=== PATIENT | male | born 1995 | race Asian ===

== ENCOUNTER 2017-03-05 18:03 | Emergency (ER) | payer OTHER ==
[2017-03-05 18:17] VITALS: TEMP 36.8
--- NOTE | 2017-03-05 18:23 | DIAGNOSTIC IMAGING REPORT ---
CHEST ONE VIEW PORTABLE CLINICAL HISTORY: 21 years-old Male presenting with eval for pna. TECHNIQUE: Portable upright AP view of the chest was obtained. COMPARISON: None. FINDINGS: Cardiomediastinal silhouette normal. Lungs and pleural spaces clear. Osseous structures normal. Upper abdomen normal. IMPRESSION: 1. No acute cardiopulmonary disease. Electronically signed by: Jeferson Chandra M.D. 03/05/2017 6:22 PM Dictated Date/Time: 03/05/2017 6:21 PM
[2017-03-05 18:58] LABS: BASO % 0.2 %; BASO ABS # 0.02 K/uL (0-0.2); EOS % 0.5 %; EOS ABS # 0.05 K/uL (0-0.5); HEMATOCRIT 45.2 % (42-52); IG# 0.03 K/uL (0.00-0.02); LYMPH % 18.9 %; LYMPH ABS # 1.96 K/uL (1.2-3.4); MEAN CELL VOLUME 87.4 fL (80-100); MEAN CORPUSCULAR HEMOGLOBIN 30.9 pg (25-34); MEAN CORPUSCULAR HGB CONC 35.4 g/dl (32-36); MEAN PLATELET VOLUME 9.8 fL (7.4-10.4); MONO % 5.2 %; MONO ABS # 0.54 K/uL (0.11-0.59); NEUT % 74.9 %; NEUT ABS # 7.79 K/uL (1.4-6.5); PLATELET COUNT 236 K/uL (130-400); RED CELL DISTRIBUTION WIDTH CV 12.9 % (11.5-14.5); RED CELL DISTRIBUTION WIDTH SD 41.5 fL (36.4-46.3); WHITE BLOOD COUNT 10.39 K/uL (4.8-10.8)
[2017-03-05 19:10] LABS: PTT PATIENT 23.1 SECONDS (21.0-31.0)
[2017-03-05 19:17] LABS: BLOOD UREA NITROGEN 18 mg/dl (7-18); CALCIUM 9.2 mg/dl (8.5-10.1); CARBON DIOXIDE 30 mmol/L (21-32); CREATININE 1.05 mg/dl (0.60-1.40); GLUCOSE 117 mg/dl (70-99); POTASSIUM 3.6 mmol/L (3.5-5.1); SODIUM 138 mmol/L (136-145)
[2017-03-05 19:35] VITALS: BP 22/69; PULSE 79; O2SAT 99
--- NOTE | 2017-03-05 19:40 | EMERGENCY ROOM VISIT NOTE ---
History Report prepared by [place]: Freddy Aguirre Under the Supervision of: Dr. Sonny Mishra M.D. First contact with patient: 18:05 Stated Complaint: TINGLING/NUMBNESS -- LEGS & HANDS History of Present Illness The patient is a 21 year old male who presents to the Emergency Room with complaints of constant numbness and tingling to his hands and feet beginning a few hours ago. The patient states he was on an airplane from [place], [place] to [place], [place]. He reports he developed shortness of breath, nausea, chest discomfort, and numbness to his hands and feet during his flight. The patient describes his chest discomfort as a squeezing sensation, and he felt something moving in his left chest. The patient notes he stayed in [place] and did not have connecting flights. He states this has never happened before, and he has been on longer flights. The patient denies anxious feelings, swelling to lower extremities, and a past medical history or recent surgery. Source of History: patient Onset: few hours ago Position: hand (bilateral), finger(s), foot (bilateral), toe(s) Quality: numbness Associated Symptoms: + chest pain (squeezing sensation and something moving on his left side), + SOB, + nausea Note: Denies: anxious feelings and swelling to lower extremities Review of Systems See HPI for pertinent positives & negatives. A total of 10 systems reviewed and were otherwise negative. Past Medical & Surgical Medical Problems: (1) No Known Active Medical Problems Family History Patient reports no known family medical history. Social History Marital Status: single Occupation Status: [employer] student Current/Historical Medications No Active Prescriptions or Reported Meds Allergies Coded Allergies: Penicillins (Unverified Allergy, Unknown, SOB, 03/05/17) Physical Exam Vital Signs Date Time Temp Pulse Resp B/P (MAP) Pulse Ox O2 Delivery O2 Flow Rate FiO2 03/05/17 19:35 79 20 22/69 99 Room Air 03/05/17 18:17 36.8 73 20 129/84 98 Room Air Physical Exam Constitutional: Vital signs reviewed. Anxious. Eyes: Pupils are equal round reactive to light. Conjunctiva are noninjected. ENT: Pharynx is clear without erythema or exudate. Mucous membranes are moist. Neck supple without meningeal signs. Respiratory: Clear to auscultation bilaterally. Breath sounds are equal bilaterally. Cardiovascular: Regular rate and rhythm. No rubs or gallops. GI: Soft, nondistended and nontender. Bowel sounds are present. Musculoskeletal: No peripheral edema. No lower extremity tenderness. Carpal spasm. Integumentary: No cyanosis. Neurological: The patient is awake and alert. No focal deficits. Psychiatric: Normal affect. Medical Decision & Procedures ER Provider Diagnostic Interpretation: X-ray results as stated below per interpretation by me and the radiologist: CHEST ONE VIEW PORTABLE CLINICAL HISTORY: 21 years-old Male presenting with eval for pna. TECHNIQUE: Portable upright AP view of the chest was obtained. COMPARISON: None. FINDINGS: Cardiomediastinal silhouette normal. Lungs and pleural spaces clear. Osseous structures normal. Upper abdomen normal. IMPRESSION: 1. No acute cardiopulmonary disease. Electronically signed by: Jeferson Chandra M.D. 03/05/2017 6:22 PM Dictated Date/Time: 03/05/2017 6:21 PM Laboratory Results 03/05/17 18:39 Red Blood Count 5.17, Mean Corpuscular Volume 87.4, Mean Corpuscular Hemoglobin 30.9, Mean Corpuscular Hemoglobin Concent 35.4, Mean Platelet Volume 9.8, Neutrophils (%) (Auto) 74.9, Lymphocytes (%) (Auto) 18.9, Monocytes (%) (Auto) 5.2, Eosinophils (%) (Auto) 0.5, Basophils (%) (Auto) 0.2, Neutrophils # (Auto) 7.79, Lymphocytes # (Auto) 1.96, Monocytes # (Auto) 0.54, Eosinophils # (Auto) 0.05, Basophils # (Auto) 0.02 03/05/17 18:39 Test 03/05/17 18:39 White Blood Count 10.39 K/uL (4.8-10.8) Red Blood Count 5.17 M/uL (4.7-6.1) Hemoglobin 16.0 g/dL (14.0-18.0) Hematocrit 45.2 % (42-52) Mean Corpuscular Volume 87.4 fL (80-100) Mean Corpuscular Hemoglobin 30.9 pg (25-34) Mean Corpuscular Hemoglobin Concent 35.4 g/dl (32-36) Platelet Count 236 K/uL (130-400) Mean Platelet Volume 9.8 fL (7.4-10.4) Neutrophils (%) (Auto) 74.9 % Lymphocytes (%) (Auto) 18.9 % Monocytes (%) (Auto) 5.2 % Eosinophils (%) (Auto) 0.5 % Basophils (%) (Auto) 0.2 % Neutrophils # (Auto) 7.79 K/uL (1.4-6.5) Lymphocytes # (Auto) 1.96 K/uL (1.2-3.4) Monocytes # (Auto) 0.54 K/uL (0.11-0.59) Eosinophils # (Auto) 0.05 K/uL (0-0.5) Basophils # (Auto) 0.02 K/uL (0-0.2) RDW Standard Deviation 41.5 fL (36.4-46.3) RDW Coefficient of Variation 12.9 % (11.5-14.5) Immature Granulocyte % (Auto) 0.3 % Immature Granulocyte # (Auto) 0.03 K/uL (0.00-0.02) Prothrombin Time 10.6 SECONDS (9.0-12.0) Prothromb Time International Ratio 1.0 (0.9-1.1) Activated Partial Thromboplast Time 23.1 SECONDS (21.0-31.0) Partial Thromboplastin Ratio 0.9 Anion Gap 3.0 mmol/L (3-11) Estimated GFR () 118.7 Estimated GFR (Non- 102.4 BUN/Creatinine Ratio 16.9 (10-20) Calcium Level 9.2 mg/dl (8.5-10.1) Thyroid Stimulating Hormone (TSH) 2.270 uIu/ml (0.300-4.500) Free Thyroxine 1.06 ng/dl (0.80-1.60) The patients POC are as follows: D-dimer 299 ng/mL Troponin I 0.00 ng/mL Laboratory results as reviewed by me. ECG Indication: chest pain Rate (beats per minute): 79 Rhythm: normal sinus Findings: no acute ischemic change, no ectopy, other (early repol) ED Course 1806: The patient was evaluated in room C12. A complete history and physical exam was performed. 1920: I reevaluated the patient and discussed his exam findings. The patient's troponin and d-dimer were both negative. The patient is currently symptom. I discussed the discharge instructions and treatment plan with the patient. He verbalized complete agreement and understanding of the treatment plan. 1934: I reevaluated the patient and answered all outstanding questions. The patient is ready for discharge. Medical Decision This is a 21-year-old male who presents with tingling in his extremities with chest pain and shortness breath. Differential diagnosis includes anxiety, panic attack, hyperventilation syndrome, pneumothorax, pulmonary embolism. I did perform a limited focused review of portions of the patient's old chart on the electronic medical record. The patient has had no recent pertinent visits to this hospital. I did evaluate the patient as noted above. The patient is presenting with carpal spasm. He admits to hyperventilating and having some chest discomfort. Currently he feels much better. IV access was established. The patient was placed on a continuous mold laminator. I did order and personally review the patient's 12-lead EKG and chest x-ray as described above. I did order and review the patient's blood work as noted in the electronic medical record. D- dimer and troponin are unremarkable. Electrolytes are also unremarkable. I did reassess patient. He is completely asymptomatic at this time. I did discuss the test results with him. I did recommend close follow with his doctor or [facility]. He was discharged in good condition. Impression Primary Impression: Hyperventilation syndrome Additional Impression: Left sided chest pain Scribe Attestation The scribe's documentation has been prepared under my direct and personally reviewed by me in its entirety. I confirm that the note above accurately reflects all work, treatment, procedures, and medical decision making performed by me. Departure Information Dispostion Home / Self-Care Prescriptions No Active Prescriptions or Reported Meds Referrals [facility] Forms HOME CARE DOCUMENTATION FORM, IMPORTANT VISIT INFORMATION, WORK / SCHOOL INSTRUCTIONS Patient Instructions ED Hyperventilation Syndrome, My [facility] Additional Instructions You have been examined and treated today on an emergency basis only. This is not a substitute for, or an effort to provide, complete comprehensive medical care. It is impossible to recognize and treat all injuries or illnesses in a single emergency department visit. It is therefore important that you follow up closely with your physician. Call as soon as possible for an appointment. Return for worsening symptoms or if you develop fever, vomiting, or any other concerning symptoms. Problem Qualifiers
== END 2017-03-05 19:39 | disposition home or self-care (01) ==
LOC: EDBD 18:03 → C.EDC 18:06
DX: R06.4 Hyperventilation (principal); R07.9 Chest pain, unspecified; Z88.0 Allergy status to penicillin